=== PATIENT | male | born 1985 | race Caucasian/White ===

== ENCOUNTER 2021-04-23 14:10 | Outpatient (CLI) | payer OTHER, SELFPAY ==
--- NOTE | 2021-04-23 | ECG_ITS ---
Measurements Intervals [place] Rate: 76 P: 48 NM: 160 QRS: -63 QRSD: 108 T: 47 QT: 358 QTc: 403 Interpretive Statements SINUS RHYTHM PATTERN CONSISTENT WITH PULMONARY DISEASE LEFT ANTERIOR FASCICULAR BLOCK [QRS AXIS <= -45, QR IN I, RS IN II] NO PREVIOUS ECG AVAILABLE FOR COMPARISON Electronically Signed On 04-23-2021 20:27:17 CDT by Lilli Stoddard M.D.
== END 2021-04-23 14:11 | disposition home or self-care (01) ==
PROVIDERS: PCP Nurse Practitioner Family; Visit Provider Nurse Practitioner Family
DX: Z01.818 Encounter for other preprocedural examination (principal); I44.4 Left anterior fascicular block
CPT/HCPCS: 93005

== ENCOUNTER 2022-05-27 08:13 | Emergency (ER) | payer OTHER, SELFPAY ==
[2022-05-27 08:13] VITALS: BP 124/85; PULSE 89; RESP 18; TEMP 37; O2SAT 96
--- NOTE | 2022-05-27 09:21 | ED.SKABFB ---
HPI - Skin/Abscess/Foreign Bdy General Chief complaint: Skin/Abscess/Foreign Body Stated complaint: absess Time Seen by Provider: 05/27/22 08:31 History of Present Illness HPI narrative: Patient is a 36-year-old male who presents ER with left buttock abscess. Developing over the last week. Had pain with running today and decided this time to have it drained. No drainage at home. No fevers or chills or sweats. The skin is starting to flake and feels more walled than it had previously. Patient also reports that his first day has been unable to sit on that left side. Related Data Allergies Allergy/AdvReac Type Severity Reaction Status Date / Time No Known Allergies Allergy Unverified 05/27/22 08:49 Review of Systems Constitutional: Constitutional: Denies chills, Denies fatigue and Denies fever(s) Gastrointestinal: Gastrointestinal: Denies abdominal pain, Denies nausea and Denies vomiting Musculoskeletal: Musculoskeletal: Denies arthralgias and Denies joint swelling Integumentary/Breasts: Skin/Breast: Reports erythema Comments: abscess/buttock pain left side Exam Narrative: GENERAL: Well-appearing, well-nourished, and in no acute distress. HEAD: Normocephalic, atraumatic. ENT: Mucous membranes moist. EXTREMITIES: Normal range of motion. No edema. SKIN: Left buttock with large area of cellulitis approximately 9 cm x 14 cm. Underlying fluctuance noted. Superficial skin is sloughing off similar to a sunburn. NEURO: Alert and oriented x3. PSYCH: Normal mood and affect. Course Course Emergency Course: Abscess drained. Recommend follow-up with PCP. Discussed removing packing in 2 days. Will be started on Bactrim. Vital Signs Vital signs: Vital Signs Temperature 98.6 F 05/27/22 08:13 Pulse Rate 89 05/27/22 08:13 Respiratory Rate 18 05/27/22 08:13 Blood Pressure 124/85 05/27/22 08:13 Pulse Oximetry 96 05/27/22 08:13 Oxygen Delivery Room Air 05/27/22 08:13 Temperature 98.6 F 05/27/22 08:13 Pulse Rate 89 05/27/22 08:13 Respiratory Rate 18 05/27/22 08:13 Blood Pressure 124/85 05/27/22 08:13 Pulse Oximetry 96 05/27/22 08:13 Oxygen Delivery Room Air 05/27/22 08:13 Procedures Abscess I/D buttock: Date of Incision: 05/27/22 Time of Incision: 09:30 Side (if applicable): left Local Anesthetic: lidocaine 2% and with epi Amount of anesthesia used (mL): 3 Technique: incised with #11 blade Packing used?: iodoform I&D Results: Pus Abcess I&D Additional Comments: coupious purulent drainage. Discharge Plan Discharge Clinical Impression: Abscess of skin or subcutaneous tissue Patient Disposition: Home, Self-Care Condition: Stable Instructions: Antibiotic Form, Abscess (ED) Additional Instructions: You had a large abscess that was drained. Remove your packing in 2 days. Take the full course of antibiotics. Return the ER if you have increased pain, you have fever over 100.4 ?F, you have additional concerns. Prescriptions: New sulfamethoxazole-trimethoprim [Bactrim DS] 800-160 mg tablet 1 tablet PO Q12H Qty: 14 0RF hydrocodone-acetaminophen 5-325 mg tablet 1 tablet PO Q6H PRN (Reason: pain) Qty: 10 0RF Follow-up/Referrals: Monse,Barbara Macario APN [Primary Care Provider] - 1 Week
== END 2022-05-27 10:10 | disposition home or self-care (01) ==
PROVIDERS: Emergency Provider Emergency Medicine; PCP Nurse Practitioner Family
DX: L02.31 Cutaneous abscess of buttock (principal)
CPT/HCPCS: 10061; 99283

== ENCOUNTER 2023-05-27 21:58 | Emergency (ER) | payer OTHER, SELFPAY ==
[2023-05-27 22:13] VITALS: BP 127/88; PULSE 75; RESP 18; TEMP 36.6; O2SAT 97
--- NOTE | 2023-05-28 00:16 | ED.DENTAL ---
HPI - Dental/Oral General Chief complaint: Dental/Oral Stated complaint: tooth pain Time Seen by Provider: 05/28/23 00:14 History of Present Illness HPI Narrative: Patient is a 37-year-old male who presents ER with right-sided dental pain. Lower jaw near tooth 1 And 2. Has swelling of lymph node that causes pain with swelling. No fevers or chills or sweats. Has poor dentition with numerous fractured teeth. Related Data Allergies Allergy/AdvReac Type Severity Reaction Status Date / Time No Known Allergies Allergy Verified 05/27/23 22:16 Review of Systems Constitutional: Constitutional: Reports no additional constitutional complaints ENT: Denies nasal congestion and Denies sore throat Comments: Dental pain PMFSH Past Medical History Medical History (Updated 05/28/23 @ 00:20 by Bruce Mauricio MD) Healthy adult male Surgical History Surgical History (Updated 05/28/23 @ 00:18 by Bruce Mauricio MD) No pertinent past surgical history Exam Narrative: GENERAL: Well-appearing, well-nourished, and in no acute distress. HEAD: Normocephalic, atraumatic. ENT:Mucous membranes moist. Poor dentition. Mild fullness near tooth 2. Intraorally without overt abscess. Mild submandibular lymphadenopathy that is tender to touch on the right side. NECK: Supple. CHEST: Clear to auscultation. No respiratory distress. EXTREMITIES: Normal range of motion. No edema. NEURO: Alert and oriented x3. Course Course Emergency Course: Will start on oral antibiotics. Discharge home. Vital Signs Vital signs: Vital Signs Temperature 97.8 F 05/27/23 22:13 Pulse Rate 75 05/27/23 22:13 Respiratory Rate 18 05/27/23 22:13 Blood Pressure 127/88 05/27/23 22:13 Pulse Oximetry 97 05/27/23 22:13 Oxygen Delivery Room Air 05/27/23 22:13 Temperature 97.8 F 05/27/23 22:13 Pulse Rate 75 05/27/23 22:13 Respiratory Rate 18 05/27/23 22:13 Blood Pressure 127/88 05/27/23 22:13 Pulse Oximetry 97 05/27/23 22:13 Oxygen Delivery Room Air 05/27/23 22:13 Discharge Plan Discharge Clinical Impression: Toothache Patient Disposition: Home, Self-Care Condition: Stable Instructions: Antibiotic Form, Toothache (ED) Additional Instructions: Return to the ER if he cannot breathe, he cannot swallow, or you have additional concerns. Follow-up with a dentist for definitive treatment of your issue. Prescriptions: New amoxicillin-pot clavulanate 875-125 mg tablet 1 tablet PO Q12H Qty: 20 0RF No Action sulfamethoxazole-trimethoprim [Bactrim DS] 800-160 mg tablet 1 tablet PO Q12H Qty: 14 0RF hydrocodone-acetaminophen 5-325 mg tablet 1 tablet PO Q6H PRN (Reason: pain) Qty: 10 0RF Follow-up/Referrals: Dental Referral Line [Outside] - 3 Days Shea,Barbara Macario APN [Primary Care Provider] -
[2023-05-28] MEDS: HYDROcodone/acetaminophen (*CRX) 5-325 MG TABLET 1 TAB PO (00:40)
[2023-05-28 00:44] VITALS: BP 186/86; PULSE 86; RESP 16; O2SAT 98
== END 2023-05-28 00:45 | disposition home or self-care (01) ==
LOC: ANHED 05-28 00:20
PROVIDERS: Emergency Provider Emergency Medicine; PCP Nurse Practitioner Family
DX: K08.89 Other specified disorders of teeth and supporting structures (principal)
CPT/HCPCS: 99283; A9270

== ENCOUNTER 2023-08-27 18:29 | Emergency (ER) | payer OTHER, SELFPAY ==
[2023-08-27 18:35] VITALS: BP 126/80; PULSE 93; RESP 16; TEMP 36.4; O2SAT 96
--- NOTE | 2023-08-27 20:08 | ED.EYEPROB ---
HPI - Eye Problem General Chief complaint: Eye Problems Stated complaint: L eye pain Time Seen by Provider: 08/27/23 19:49 Source: patient Mode of arrival: ambulatory Limitations: no limitations History of Present Illness HPI Narrative: This is a 38 year old male that presents to the ER for left eye irritation. Ongoing over the last couple of days. Reports he woke up yesterday with eye redness and irritation. No known injury. Reports mild pain to the area. Reports blurry vision. Does report his glasses prescription recently being changed. Denies fever or abnormal drainage. Related Data Allergies Allergy/AdvReac Type Severity Reaction Status Date / Time No Known Allergies Allergy Verified 05/27/23 22:16 Review of Systems Review of Systems: CONSTITUTIONAL: Denies fever EYES: Reports visual changes, redness. Denies discharge. All systems reviewed & are unremarkable except as noted in HPI and below PMFSH Past Medical History Medical History (Updated 08/27/23 @ 20:10 by Ludivina Bar PA-C) Healthy adult male Surgical History Surgical History (Updated 05/28/23 @ 00:18 by Bruce Mauricio MD) No pertinent past surgical history Social History Social History (Updated 08/27/23 @ 20:21 by Ludivina Bar PA-C) Smoking status: Current every day smoker Exam Narrative: GENERAL: Well-appearing, well-nourished, and in no acute distress. HEAD: Normocephalic, atraumatic. EYES: PERRLA and EOMI. Left conjunctival injection laterally. Eyelid everted, no foreign body. No fluorescein stain uptake. Visual acuity 20/50 left eye, 20/30 right eye EXTREMITIES: Normal range of motion. No edema. SKIN: Warm, dry, no rash. NEURO: No focal deficits. Alert and oriented x3. PSYCH: Normal mood and affect Course Course Emergency Course: Patient agrees with plan of care Vital Signs Vital signs: Vital Signs Temperature 97.6 F 08/27/23 18:35 Pulse Rate 93 08/27/23 18:35 Respiratory Rate 16 08/27/23 18:35 Blood Pressure 126/80 08/27/23 18:35 Pulse Oximetry 96 08/27/23 18:35 Oxygen Delivery Room Air 08/27/23 18:35 Temperature 97.6 F 08/27/23 18:35 Pulse Rate 93 08/27/23 18:35 Respiratory Rate 16 08/27/23 18:35 Blood Pressure 126/80 08/27/23 18:35 Pulse Oximetry 96 08/27/23 18:35 Oxygen Delivery Room Air 08/27/23 18:35 MDM - Eye Problem MDM Narrative Medical decision making narrative: Patient presents to the ER for left eye irritation and redness. No known injuries. Reports recent prescription change to his glasses. Reporting blurry vision. Left eye 20/50, right eye 20/30. No fluorescein stain uptake on exam. Mild conjunctival injection laterally. Patient unfortunately did not tolerate eye exam well and refused any further evaluation (eye pressure measurement). He was educated on the reasoning for further exam. He still declines at this time. Will be started on topical antibiotics for conjunctivitis. He was instructed he should have close follow-up with his eye doctor. He was given warnings to return to the ER Differential Diagnosis Differential diagnosis: Likely corneal abrasion, conjunctivitis, acute iritis, subconjunctival hemorrhage, glaucoma and corneal ulcer Critical Care Time Critical Care Time Critical Care Time: No Discharge Plan Discharge Clinical Impression: Conjunctivitis Qualifiers: Conjunctivitis type: acute Acute conjunctivitis type: unspecified Laterality: left Qualified Code(s): H10.32 - Unspecified acute conjunctivitis, left eye Patient Disposition: Home, Self-Care Condition: Guarded Prognosis Instructions: Antibiotic Form, Conjunctivitis (ED) Additional Instructions: Return to the emergency department if you experience fever, redness and swelling of your eye, worsening vision problems, worsening pain, or any other symptoms that are concerning to you Apply antibiotic eye drops as prescribed Follow up with your eye doctor Prescri
== END 2023-08-27 20:48 | disposition home or self-care (01) ==
LOC: ANHED 20:31
PROVIDERS: Emergency Provider Physician Assistant; PCP Nurse Practitioner Family
DX: H10.32 Unspecified acute conjunctivitis, left eye (principal); F17.200 Nicotine dependence, unspecified, uncomplicated
CPT/HCPCS: 99283